=== PATIENT | male | born 1965 | race Caucasian/White ===

== ENCOUNTER 2016-08-18 18:46 | Emergency (ER) | payer BC ==
[2016-08-18 18:59] VITALS: BP 138/96
[2016-08-18] MEDS ORDERED: Lidocaine 1% 50 ML MDV INJECT ONE (19:00)
--- NOTE | 2016-08-18 19:03 | EDM.PDOC ---
ED HPI GENERAL MEDICAL PROBLEM - General Chief Complaint: Upper Extremity Injury/Pain Stated Complaint: FISH HOOK IN FINGER Time Seen by Provider: 08/18/16 18:56 Source of Information: Reports: Patient History Limitations: Reports: No Limitations - History of Present Illness INITIAL COMMENTS - FREE TEXT/NARRATIVE: The patient presents with a fish hook in his left index finger. The patient was fishing and he got the hook caught in his left index finger. It was also caught on the net so he had to cut it and now the tip of the hook is still in the finger. He is right handed and his tetanus is up to date. Onset: Sudden Duration: Hour(s): Location: Reports: Upper Extremity, Left (index finger) Quality: Reports: Sharp Severity: Mild Improves with: Reports: None Worsens with: Reports: None Associated Symptoms: Reports: No Other Symptoms Left 2-Index finger Pain Score (Numeric/FACES): 1 - Related Data Allergies Allergy/AdvReac Type Severity Reaction Status Date / Time No Known Allergies Allergy Verified 08/18/16 18:54 Home Meds: Home Meds atorvaSTATin [Lipitor] 20 mg PO BEDTIME 08/18/16 [History] Review of Systems - Review of Systems Review Of Systems: See Below Constitutional: Reports: No Symptoms Eyes: Reports: No Symptoms Ears: Reports: No Symptoms Nose: Reports: No Symptoms Mouth/Throat: Reports: No Symptoms Respiratory: Reports: No Symptoms Cardiovascular: Reports: No Symptoms GI/Abdominal: Reports: No Symptoms Genitourinary: Reports: No Symptoms Musculoskeletal: Reports: Other (Fish hook in left index finger) ED EXAM, GENERAL - Physical Exam Exam: See Below Exam Limited By: No Limitations General Appearance: Alert, No Apparent Distress Ears: Normal External Exam Nose: Normal Inspection Head: Atraumatic, Normocephalic Neck: Normal Inspection Respiratory/Chest: No Respiratory Distress Extremities: Other (Left index finger has a puncture wound to the tip of the finger. The hook cannot be seen. There is good capillary refill and sensation distally.) ED TRAUMA EXTREMITY PROCEDURES - Foreign Body Removal Indication:: Fish hook in left index finger Consent Obtained: Patient Performing Doctor:: Candido Marx Anesthesia Type: Regional (Digital block) Complications:: No Comments:: After his finger was anaesthetized I used an 11blade to open the wound up more and I removed the fish hook without a problem. I put a suture in using a 4-0 nylon suture. The patient tolerated the procedure will and there were no complications. Course - Vital Signs Last Recorded V/S: Last Vital Signs Temp 98.4 F 08/18/16 18:55 Pulse 87 08/18/16 18:55 Resp 14 08/18/16 18:55 BP 138/96 H 08/18/16 18:55 Pulse Ox 98 08/18/16 18:55 - Orders/Labs/Meds Meds: Medications Discontinued Medications Generic Name Dose Route Start Last Admin Trade Name Helene PRN Reason Stop Dose Admin Lidocaine HCl 50 ml 08/18/16 19:00 08/18/16 19:23 Xylocaine 1% INJECT 08/18/16 19:01 50 ml ONETIME ONE Administration Departure - Departure Time of Disposition: 19:50 Disposition: Home, Self-Care 01 Condition: good Clinical Impression: Fish hook injury of left index finger Qualifiers: Encounter type: initial encounter Qualified Code(s): S69.92XA - Unspecified injury of left wrist, hand and finger(s), initial encounter - Discharge Information Referrals: Babak Goss MD [Primary Care Provider] - 1 Week Forms: ED Department Discharge Additional Instructions: Soak your finger in warm soapy water 2 times per day and apply antibiotic ointment after. Look for any sign of infection such as redness, swelling, pain or drainage and see someone. Have your sutures removed in 1 week.
== END 2016-08-18 20:00 | disposition home or self-care (01) ==
LOC: JD.ED 18:46
DX: S60.451A Superficial foreign body of left index finger, initial encounter (principal); W45.8XXA Other foreign body or object entering through skin, initial encounter
CPT/HCPCS: 10120; 12001; 99282-25; 99283-25